=== PATIENT | female | born 1985 | race Caucasian/White ===

== ENCOUNTER 2016-11-27 11:51 | Inpatient (IN) | payer OTHER ==
[2016-11-27] MEDS ORDERED: LIDOCAINE HCL 50 ML VIAL PERI PRN (12:10)
[2016-11-27] MEDS ORDERED: OXYTOCIN/DEXTROSE 5%-WATER 30 UNITS/500 ML BAG IV ONE ×3 (12:10→17:51)
[2016-11-27] MEDS ORDERED: RINGER'S SOLUTION,LACTATED 1,000 ML IV ONE (12:10)
[2016-11-27] MEDS: RINGER'S SOLUTION,LACTATED 1,000 ML IV PRN ×2 (12:31→13:59)
--- NOTE | 2016-11-27 13:08 | PN ---
Progess Note - Interim Narrative: 11/27/16 13:05 Pt doing ok. FHTs: 140's mod briseida, no decels, + accels [place]: q2-5 min SVE: 5-6/80/-2, AROM, clear Plan for epidural.
[2016-11-27] MEDS ORDERED: NALOXONE HCL 1 MG/1 ML SYRG IV PRN (13:09)
[2016-11-27] MEDS ORDERED: BUPIVACAINE HCL/0.9 % NACL/PF 250 ML EP PRN (13:09)
[2016-11-27] MEDS ORDERED: ONDANSETRON HCL/PF 2 MG/ML VIAL IV PRN (13:09)
[2016-11-27] MEDS ORDERED: fentaNYL CITRATE/PF 50 MCG/ML AMPUL IT SCH (13:15)
--- NOTE | 2016-11-27 13:27 | OR ---
Anesthesia Pre Procedure Eval Date of Service: 11/27/16 Pre Procedure Evaluation: Last Vital Signs Temp 37.3 C 12/30/15 17:15 Pulse Resp BP 125/74 12/30/15 19:25 Pulse Ox Anesthesia Pre Procedure Evaluation Heart Rate: 95 Blood Pressure: 130/73 Temperature: 36.8C Respiratory Rate: 18 SaO2: 98 DATE: 11/27/2016 TIME: 1325 INDICATIONS: Active labor, labor pain PAST MEDICAL HISTORY: Multipara patient in active labor at 5 cm dilatation, membranes are ruptured requesting labor analgesia History of GERD: No History of smoking: No History of sleep apnea: No EXAM: Heart regular; lungs clear ASSESSMENT OF MEDICAL STATUS: Appropriate candidate for labor analgesia PLANNED PROCEDURE: Combination spinal epidural for labor analgesia Home Medications: HOME MEDICATIONS Vits96/Iron Fum/Folic [ S] 1 tab PO DAILY 11/22/16 [Last Taken 11/24/16 20:00]
--- NOTE | 2016-11-27 13:50 | OR ---
Anesthesia Procedure Note - Anesthesia Procedure Note Date of Service: 11/27/16 Narrative: Vital Signs - Last Taken Temp 37.3 C 12/30/15 17:15 Pulse Resp BP 125/74 12/30/15 19:25 Pulse Ox 11/27/16 13:49 ANESTHESIA PROCEDURE NOTE Date of Procedure: 11/27/2016 Time of procedure: 1325. Performed by: JOHNY Walden CRNA, MSN Bicycle Repairer: Olinda Fierro RN. Preprocedure diagnosis: Active labor, labor pain. Post procedure diagnosis: Same. Procedure:Epidural for labor analgesia L3 4. Indications: Labor pain. Findings: See below. Details of the procedure: The patient was placed on the side of the bed in sitting positionand prepped with DuraPrep then draped in a sterile fashion. Lidocaine 1% was infiltrated to the skin and subcutaneous tissues at the level of the L3 4 interspace. An 18-gauge Touhy needle was used to approach the epidural space with loss of resistance technique. Once loss of resistance was achieved a 24-gauge Pencan needle was passed through the epidural needle and CSF was contacted. After CSF returned fentanyl 20 mcg of fentanyl was injected in the spinal needle was removed the epidural catheter was then threaded approximately 4 cm in the epidural needle was removed. The catheter was taped in place and after careful aspiration 3 mL of 1.5% lidocaine with 1-200,000 epinephrine was injected without change in maternal heart rate or sensorium. . EBL: Minimal. Fluids: N/A. Specimen: N/A. Post procedure condition: The patient tolerated the procedure well with good relief. No complications were noted. Thank you for this consultation. Albino Zamorano CRNA, SAIL REPAIR PERSON, MSN
[2016-11-27] MEDS ORDERED: BISACODYL 10 MG SUPP.RECT RC PRN (17:51)
[2016-11-27] MEDS ORDERED: BENZOCAINE/MENTHOL 81 SPRAY CAN TP PRN (17:51)
[2016-11-27] MEDS ORDERED: GLYCERIN/WITCH HAZEL LEAF 40 APPL BOX TP PRN (17:51)
[2016-11-27] MEDS ORDERED: SENNOSIDES 8.6 MG TABLET PO PRN (17:51)
[2016-11-27] MEDS ORDERED: oxyCODONE HCL/ACETAMINOPHEN 1 TAB TABLET PO PRN (17:51)
[2016-11-27] MEDS ORDERED: HYDROCORTISONE 30 APPL TUBE TP PRN (17:51)
--- NOTE | 2016-11-27 17:57 | OR ---
Operative Report - Dictated Report Narrative: Spontaneous Vaginal Delivery Viable male with APGARS of 8 at 1 minute and 9 at 5 minutes. She delivered at 1732. Presentation was CHRISTOPHER. No nuchal cord was noted. The anterior and posterior shoulder delivered without difficulty and the baby was placed on maternal abdomen. Spontaneous cry was noted. The cord was clamped and cut after approximately 60 seconds. Weight: 6 pounds 5.7 ounces or 2888 g Placenta was delivered spontaneously and intact. Abrasions were noted and hemostatic. Estimated blood loss: 50 ml Mother and baby tolerated delivery well. History for Definition: * The number of deliveries resulting in a live the patient experienced prior to current hospitalization * The previous delivery of live twins or any live multiple gestation is considered one live event. *If primagravida or nulliparous is documented select zero for the number of previous live births. Live Events: 2
[2016-11-27] MEDS: IBUPROFEN 800 MG TABLET PO PRN (18:59)
[2016-11-27 21:20] VITALS: BP 131/74
[2016-11-27] MEDS: DOCUSATE SODIUM 100 MG CAPSULE PO SCH (21:55)
[2016-11-27] MEDS: oxyCODONE HCL/ACETAMINOPHEN 1 TAB TABLET PO PRN (23:59)
[2016-11-28] MEDS: IBUPROFEN 800 MG TABLET PO PRN ×2 (02:40→10:57)
[2016-11-28] MEDS: oxyCODONE HCL/ACETAMINOPHEN 1 TAB TABLET PO PRN ×2 (07:53→10:57)
[2016-11-28] MEDS: DOCUSATE SODIUM 100 MG CAPSULE PO SCH (08:03)
--- NOTE | 2016-11-28 09:11 | PN ---
Progess Note - Interim Narrative: 11/28/16 09:06 doing well, cramping a little bit, moderate lochea, ambulating, nelson po VSS Abd: soft, NT, FF Ext: NT, no edema A/P: routine PP care desires tubal, oct. 12
== END 2016-11-28 11:00 | disposition home or self-care (01) | DRG 775 ==
LOC: OB 11:51
PROVIDERS: ADMIT Obstetrics & Gynecology Gynecologic Oncology; ATTEND Obstetrics & Gynecology Gynecologic Oncology
PROC: 10E0XZZ Delivery of Products of Conception, External Approach (ICD-10-PCS; principal; 2016-11-27)
PROC: 10907ZC Drainage of Amniotic Fluid, Therapeutic from Products of Conception, Via Natural or Artificial Opening (ICD-10-PCS; 2016-11-27)
PROC: 4A1HXCZ Monitoring of Products of Conception, Cardiac Rate, External Approach (ICD-10-PCS; 2016-11-27)
PROC: 00HU33Z Insertion of Infusion Device into Spinal Canal, Percutaneous Approach (ICD-10-PCS; 2016-11-27)
DX: O80 Encounter for full-term uncomplicated delivery (principal); Z3A.37 37 weeks gestation of pregnancy; Z37.0 Single live birth

== ENCOUNTER 2017-01-08 11:54 | Day surgery (SDC) | payer OTHER ==
[~2017-01-08 11:54] MED LIST: RINGER'S SOLUTION,LACTATED 1,000 ML IV PRN
[2017-01-08] MEDS ORDERED: RINGER'S SOLUTION,LACTATED 1,000 ML IV ONE (12:25)
[2017-01-08] MEDS ORDERED: ONDANSETRON HCL/PF 2 MG/ML VIAL IV PRN (12:32)
[2017-01-08] MEDS ORDERED: HYDROmorphone HCL 1 MG/ML DISP.SYRIN IV PRN (12:32)
[2017-01-08] MEDS ORDERED: diphenhydrAMINE HCL 50 MG/ML VIAL IV PRN (12:32)
[2017-01-08] MEDS ORDERED: NALOXONE HCL 0.4 MG/ML VIAL IV PRN (12:32)
[2017-01-08] MEDS ORDERED: PROMETHAZINE HCL 12.5 MG in DEXTROSE 5 % IN WATER 50 ML IV PRN ×2 (12:32)
[2017-01-08] MEDS ORDERED: BUPIVACAINE HCL/EPINEPHRINE 50 ML VIAL IJ ONE ×2 (13:00)
--- NOTE | 2017-01-08 13:52 | OR ---
Operative Report - Dictated Report Narrative: Operative report: 01/08/2017 Preoperative diagnosis: Desires permanent sterilization Postoperative diagnosis: Same Procedure: Laparoscopic bilateral salpingectomy Surgeon: Florecita Casas D.O. Cad Detailer: OR staff Anesthesia: Gen. IV fluids: 500 Milliliters Urine output: 50ml of clear urine Findings: Normal appearing uterus, tubes, and ovaries EBL: Minimal Drains: None Pathology: Bilateral fallopian tubes Complications: None Condition: Stable The patient was taken to the operating room. Anesthesia was found to be adequate. The patient was prepped and draped in the normal sterile fashion in the dorsal lithotomy position. A sterile speculum was then inserted into the vagina. The [employer] uterine manipulator was then inserted into the uterus. The speculum was removed. A red rubber was then inserted into the bladder to drain throughout the procedure. Attention was then turned to the abdomen. Local anesthetic was then injected within the umbilicus. A 5 mm skin incision was then made with the scalpel. A hemostat was then used to bluntly dissect down to the fascia. The 5 mm camera was then inserted into the trocar and under direct visualization inserted into the abdomen. The abdomen was then insufflated to 12 mmHg. The abdomen was then surveyed and noted as above. Attention was then turned to the left lower quadrant, the peritoneum was mapped with local anesthetic, skin incised, subcutaneous tissue bluntly dissected, and an 8 mm trocar entered into the peritoneum under direct visualization. The fallopian tube was then grasped. Electrocautery was then used to sequentially cauterize, cut, and remove the entire fallopian tube. This manipulation of the uterus with uterine manipulator and a central posterior perforation was noted in the portion of the uterus. Minimal bleeding was noted. Attention was then turned to the opposite fallopian tube electrocautery was used to sequentially cauterize, and remove the entire fallopian tube. The fallopian tubes were then removed under direct visualization and sent to pathology. The pedicles were again cauterized, and then inspected and found to be hemostatic. The uterine perforation was losing and electrocautery was used to obtain hemostasis. The blood was removed from the posterior cul-de-sac with a small portion of the Ray-Yoly. A piece of Surgicel was placed over this area. No bleeding was noted. The abdomen was then desufflated. The trochars were removed under direct visualization. The skin incisions were then reapproximated with 4-0 Vicryl, benzoin and Steri-Strips. Band-Aids were then placed. The [employer] uterine manipulator was then removed and sites were briskly bleeding. Pressure was used and the sites continued to bleed. A [id number] suture with 0 Vicryl was used and hemostasis was obtained. The red rubber catheter was then removed. Clear yellow urine was noted throughout the entire procedure. The patient tolerated the procedure well. Sponge, lap, needle, and instrument counts were correct throughout the entire procedure. The patient was taken to the recovery room in stable condition.
[2017-01-08] MEDS ORDERED: RINGER'S SOLUTION,LACTATED 1,000 ML IV PRN (14:26)
[2017-01-08] MEDS ORDERED: oxyCODONE HCL/ACETAMINOPHEN 1 TAB TABLET PO PRN (14:27)
[2017-01-08] MEDS ORDERED: IBUPROFEN 800 MG TABLET PO PRN (14:28)
[2017-01-08 15:18] VITALS: BP 142/92
== END 2017-01-08 11:55 | disposition home or self-care (01) ==
LOC: AMB 11:54
PROVIDERS: ATTEND Obstetrics & Gynecology Gynecologic Oncology
PROC: 0UT74ZZ Resection of Bilateral Fallopian Tubes, Percutaneous Endoscopic Approach (ICD-10-PCS; principal; 2017-01-08 13:00)
DX: Z30.2 Encounter for sterilization (principal); Z68.23 Body mass index [BMI] 23.0-23.9, adult